=== PATIENT | male | born 1975 | race Two or more races ===

== ENCOUNTER 2021-03-30 13:14 | Emergency (ER) | payer OTHER ==
[~2021-03-30] VITALS: Ht 172.7 cm; Wt 139.9 kg
--- NOTE | 2021-03-30 13:56 | PHYS DOC ---
Past History Past Surgical History: No Surgical History (MONTSERRAT KWON APRN) Alcohol Use: None (MONTSERRAT KWON APRN) Adult General Chief Complaint Chief Complaint: SHORTNESS OF BREATH HPI HPI Patient is a 45-year-old male presents to the emergency department with a chief complaint of increased shortness of breath this morning. Patient reports a week ago he started feeling fatigued with shortness of breath, treated at home over several days with [id number] cold and flu medications. Was seen yesterday at [facility] and was told he was positive for the COVID-19 virus. Patient reports waking up this morning with severe shortness of breath so he comes to the emergency department for evaluation. Patient denies chest pains, chest congestion, nasal congestion, denies diaphoretic episodes, visual disturbances, dizziness, headaches, loss of taste or loss of smell. Patient denies nausea, vomiting, diarrhea, or abdominal pains. Patient denies other physical complaints or physical concerns. Patient denies taking prescription medications, denies allergies to medications. States he has no primary care physician. (MONTSERRAT KWON APRN) Review of Systems Review of Systems 14 body systems of review of systems have been reviewed. See HPI for pertinent positives and negative responses, otherwise all other systems are negative, nonpertinent or noncontributory. Constitutional: Negative except as outlined in HPI above. Skin: Negative except as outlined in HPI above. Eyes: Negative except as outlined in HPI above. HENT: Negative except as outlined in HPI above. Respiratory: Negative except as outlined in HPI above. Cardiovascular: Negative except as outlined in HPI above. GI: Negative except as outlined in HPI above. : Negative except as outlined in HPI above. Musculoskeletal: Negative except as outlined in HPI above. Integument: Negative except as outlined in HPI above. Neurologic: Negative except as outlined in HPI above. Endocrine: Negative except as outlined in HPI above. Lymphatic: Negative except as outlined in HPI above. Psychiatric: Negative except as outlined in HPI above. (MONTSERRAT KWON APRN) Allergies Allergies Allergies Coded Allergies Type Severity Reaction Last Updated Verified No Known Drug Allergies 03/30/21 No (MONTSERRAT KWON APRN) Physical Exam Physical Exam Constitutional: Well developed, well nourished, no acute distress, non-toxic appearance. 45-year-old male in no apparent distress. No respiratory distress appreciated. Patient's oxygen saturation is much lower than patient's physical appearance and presentation. HENT: Normocephalic, atraumatic. No lymphadenopathy of the head or neck, bilateral TMs within normal limits. No drooling, no trismus. Eyes: Conjunctiva normal, no discharge. Neck: Normal range of motion, no stridor. No nuchal rigidity, no meningismus signs. Cardiovascular: No cyanosis appreciated, distal cap refill less than 2 seconds. Heart rate slightly tachycardic at 103 bpm during physical examination otherwise regular rhythm. Heart sounds S1-S2. Lungs & Thorax: Patient is in no respiratory distress, no audible adventitious lung sounds appreciated. Lung sounds clear all lung carl, patient presented hypoxic at 55% on room air, placed on 12 L high flow nasal cannula. Normal work of breathing. Abdomen: Nontender, no abnormalities noted. Skin: Warm, dry, no erythema, no rash. Back: No tenderness, no deformities. Extremities: No tenderness, no cyanosis, no clubbing, ROM intact, no edema. Neurologic: Alert and oriented X 3, normal motor function, normal sensory f unction, no focal deficits noted. Psychologic: Affect normal, judgement normal, mood normal. (MONTSERRAT KWON APRN) Current Patient Data Vital Signs Vital Signs Date Time Temp Pulse Resp B/P (MAP) Pulse Ox O2 Delivery O2 Flow Rate FiO2 03/30/21 13:34 111 18 104/61 (75) 77 10.0 03/30/21 13:28 98.7 Room Air Lab Results Laboratory Tests Test 03/30/21 13:55 03/30/21 14:05 Blood Gas pH 7.40 Blood Gas PCO2 38 mmHg Blood Gas PO2 56 mmHg Blood Gas HCO3 23 mmol/L Arterial Bld O2 Saturation (Calc) 89 % FiO2 68 % White Blood Count 3.9 x10^3/uL Red Blood Count 4.96 x10^6/uL Hemoglobin 14.5 g/dL Hematocrit 43.6 % Mean Corpuscular Volume 88 fL Mean Corpuscular Hemoglobin 29 pg Mean Corpuscular Hemoglobin Concent 33 g/dL Red Cell Distribution Width 13.9 % Platelet Count 136 x10^3/uL Neutrophils (%) (Auto) 89 % Lymphocytes (%) (Auto) 6 % Monocytes (%) (Auto) 5 % Eosinophils (%) (Auto) 0 % Basophils (%) (Auto) 1 % Neutrophils # (Auto) 3.5 x10^3uL Lymphocytes # (Auto) 0.2 x10^3/uL Monocytes # (Auto) 0.2 x10^3/uL Eosinophils # (Auto) 0.0 x10^3/uL Basophils # (Auto) 0.0 x10^3/uL Sodium Level 136 mmol/L Potassium Level 4.3 mmol/L Chloride Level 101 mmol/L Carbon Dioxide Level 26 mmol/L Anion Gap 9 Blood Urea Nitrogen 21 mg/dL Creatinine 1.2 mg/dL Estimated GFR (Cockcroft-Gault) 64.9 BUN/Creatinine Ratio 18 Glucose Level 219 mg/dL Calcium Level 8.0 mg/dL Phosphorus Level 2.5 mg/dL Magnesium Level 2.2 mg/dL Total Bilirubin 0.4 mg/dL Aspartate Amino Transf (AST/SGOT) 70 U/L Alanine Aminotransferase (ALT/SGPT) 50 U/L Alkaline Phosphatase 103 U/L Troponin I Quantitative 0.028 ng/mL [id number]-Mhh-[id number]-Type Natriuretic Peptide 338 pg/mL Total Protein 7.1 g/dL Albumin 2.8 g/dL Albumin/Globulin Ratio 0.7 Lipase 59 U/L Current Medications Medications (Trade) Dose Ordered Sig/Mariaa Route PRN Reason Start Time Stop Time Status Last Admin Dose Admin Iohexol (Omnipaque 350 Mg/ml) 100 ml 1X ONCE IV 03/30/21 14:15 03/30/21 14:16 DC 03/30/21 14:30 Info (Do NOT chart on this entry -- for MONITORING) 1 each PRN DAILY PRN MC SEE COMMENTS 03/30/21 14:15 04/01/21 14:14 Dexamethasone Sodium Phosphate (Decadron) 10 mg 1X ONCE IV 03/30/21 15:15 03/30/21 15:19 DC 03/30/21 15:34 Ceftriaxone Sodium 1 gm/ Sodium Chloride 50 ml @ 100 mls/hr 1X ONCE IV 03/30/21 15:15 03/30/21 15:44 DC 03/30/21 15:33 Azithromycin 500 mg/Sodium Chloride 250 ml @ 250 mls/hr 1X ONCE IV 03/30/21 15:15 03/30/21 16:14 DC 03/30/21 15:33 Sodium Chloride 250 ml @ As Directed STK-MED ONCE .ROUTE 03/30/21 15:25 03/30/21 15:26 DC Sodium Chloride 50 ml @ As Directed STK-MED ONCE .ROUTE 03/30/21 15:25 03/30/21 15:26 DC Azithromycin (Zithromax) 500 mg STK-MED ONCE IV 03/30/21 15:26 03/30/21 15:26 DC Ceftriaxone Sodium (Rocephin) 1 gm STK-MED ONCE .ROUTE 03/30/21 15:26 03/30/21 15:26 DC Enoxaparin Sodium (Lovenox 100mg Syringe) 100 mg 1X ONCE SQ 03/30/21 16:00 03/30/21 15:54 DC Enoxaparin Sodium (Lovenox 40mg Syringe) 40 mg 1X ONCE SQ 03/30/21 16:00 03/30/21 16:01 UNV Enoxaparin Sodium (Lovenox 150mg Syringe) 140 mg 1X ONCE SQ 03/30/21 16:00 03/30/21 16:01 DC 03/30/21 16:07 (MONTSERRAT KWON APRN) EKG EKG EKG performed at 1415 by house respiratory therapy staff shows a sinus tachycardia without other ectopy heart rate 105 bpm, OH interval 0.130, QTc interval 0.429, no acute STEMI, no ACS, no acute ischemia appreciated, EKG interpreted by ED attending physician Dr. Alexander. (MONTSERRAT KWON APRN) Radiology/Procedures Radiology/Procedures PATIENT: CLARA GASPAR ACCOUNT: [id number] : 1975 LOCATION: ER AGE: 45 SEX: M EXAM STATUS: REG ER ORD. PHYSICIAN: MONTSERRAT KWON APRN REASON: Short of breath, PUI PROCEDURE: CHEST AP ONLY XR CHEST 1V INDICATION: Short of breath, PUI . COMPARISON STUDY: None. FINDINGS: Lungs: Normal lung volume. Diffuse bilateral heterogeneous opacities Pleura: No pleural effusion or pneumothorax. Heart and Mediastinum: Mild cardiomegaly. The great vessels of the thorax are normal. Bones and Soft Tissues: The bones and soft tissues are within normal limits. IMPRESSION: Diffuse bilateral opacities, likely multifocal infection or edema. PATIENT: CLARA GASPAR ACCOUNT: [id number] : 1975 LOCATION: ER AGE: 45 SEX: M EXAM STATUS: REG ER ORD. PHYSICIAN: MONTSERRAT KWON APRN REASON: Severe hypoxia, PUI PROCEDURE: CT ANGIOGRAPHY CHEST CTA CHEST INDICATION: Severe hypoxia, PUI Comparison: Radiograph 03/30/2021. TECHNIQUE: Following the uneventful administration of intravenous contrast, 100 cc Omnipaque 350, axial CT sections were obtained through the lungs and upper abdomen. Multiplanar reconstructions and MIP images were obtained. PQRS compliance statement: One or more of the following individualized dose reduction techniques were utilized for this examination: 1. Automated exposure control 2. Adjustment of the mA and/or kV according to patient size 3. Use of iterative reconstruction technique FINDINGS: Pulmonary arteries: No evidence of pulmonary thromboembolic disease. Lungs and Airways: Diffuse bilateral groundglass opacities and consolidations. No abnormality of the central airways. Pleura: The pleural spaces are normal. Heart and Mediastinum: The visualized thyroid is normal in size and attenuation. No axillary or supraclavicular lymphadenopathy. Mediastinal lymphadenopathy. Mild cardiomegaly. No pericardial effusion. Normal caliber thoracic. Abdomen: Limited images through the upper abdomen show no abnormality of the visualized organs. Bones and Soft Tissues: Degenerative changes of the spine. IMPRESSION: 1. No evidence of pulmonary thromboembolic disease. 2. Diffuse bilateral groundglass opacities and consolidations, likely multifocal infection or edema. 3. Mediastinal lymphadenopathy, likely reactive. Electronically signed by: Osmel Stephenson MD (03/30/2021 2:54 PM) [facility] (MONTSERRAT KWON APRN) Heart Score C/O Chest Pain: No Risk Factors: Risk Factors: DM, Current or recent (<one month) smoker, HTN, HLP, family history of CAD, obesity. Risk Scores: Risk Factors: DM, Current or recent (<one month) smoker, HTN, HLP, family history of CAD, obesity. (MONTSERRAT KWON APRN) Course & Med Decision Making Course & Med Decision Making Pertinent Labs and Imaging studies reviewed. (See chart for details) 45-year-old male, vital signs reviewed, presents emergency department concerning increased shortness of breath this morning. Patient reports Covid positive. Physical examination concerning for possible pulmonary emboli related to patient's low O2 sat/hypoxia without physical evidence of hypoxia. Patient remains in no apparent respiratory distress, is nontoxic in appearance. Will order cardiorespiratory work-up, CT angio chest, arterial blood gas. Patient is amenable to ED planning. CT angio chest nonconcerning for pulmonary emboli, chest x-ray concerning for atypical pneumonia most likely Covid 19 viral pneumonia however patient is hypoxic will start 1 g Rocephin, 500 mg IV Zithromax for atypical pneumonia Called and discussed patient case and ED work-up with inpatient management physician Dr. Thierno Luu who recommended patient be admitted to either [facility]. Called and discussed patient case and ED work-up with inpatient management physician Dr. Calixto who agrees patient case warrants admission to [facility], Dr. Calixto has accepted patient in transfer to [facility] pending bed assignment. Patient is amenable to transfer to [facility] for admission under Dr. Calixto. Transfer/EMTALA forms reviewed and signed by ED attending physician Dr. Alexander. Dr. Alexander recommended patient be prophylactically treated with 1 mg/kg Lovenox subcu. 140 mg Lovenox subcu ordered. Awaiting bed assignment at this time. While awaiting bed assignment, ED yardmaster Jam reports patient becoming more hypoxic on 12 L high flow nasal cannula, gave order to switch to Ventimask and titrate to keep O2 sat above 90%. Cafe Manager Jam reports patient on 15 L nonrebreather mask to maintain oxygen saturation above 90%. (MONTSERRAT KWON APRN) Dragon Disclaimer Dragon Disclaimer This electronic medical record was generated, in whole or in part, using a voice recognition dictation system. (MONTSERRAT KWON APRN) Attending Co-Sign The patient was seen and interviewed as well as examined at the bedside. The chart was reviewed. The case was discussed. Agree with the plan of care. (AMADA ALEXANDER DO) Departure Departure: Impression: Primary Impression: COVID-19 virus infection Additional Impressions: Community acquired pneumonia Atypical pneumonia Hypoxia Disposition: 02 SHORT TERM [facility] (Transfer to [facility], Dr. Calixto excepting physician.) Condition: STABLE Referrals: PCP,NO (PCP) Problem Qualifiers Additional Impressions: Community acquired pneumonia Laterality: unspecified laterality Qualified Codes: J18.9 - Pneumonia, unspecified organism MONTSERRAT KWON APRN Mar 30, 2021 13:55 AMADA ALEXANDER DO Apr 08, 2021 04:52
[2021-03-30 14:10] LABS: BGAS PH 7.4 (7.35-7.46)
[2021-03-30] MEDS ORDERED: IOHEXOL 350 MG/ML 100 ML VIAL. IV ONE (14:15)
[2021-03-30] MEDS ORDERED: CONTRAST GIVEN. MC PRN (14:15)
[2021-03-30 14:22] LABS: BASO % 1 % (0-3); EOS % 0 % (0-3); HEMATOCRIT 43.6 % (39.0-53.0); HEMOGLOBIN 14.5 g/dL (13.0-17.5); LYMPH # 0.2 x10^3/uL (1.0-4.8); LYMPH % 6 % (24-48); MEAN CORPUSCULAR HEMOGLOBIN 29 pg (25-35); MEAN CORPUSCULAR HGB CONC 33 g/dL (31-37); MEAN CORPUSCULAR VOLUME 88 fL (79-100); MONO # 0.2 x10^3/uL (0.0-1.1); MONO % 5 % (0-9); NEUT # 3.5 x10^3uL (1.8-7.7); NEUT % 89 % (31-73); PLATELET COUNT 136 x10^3/uL (140-400); RED BLOOD COUNT 4.96 x10^6/uL (4.30-5.70); RED CELL DISTRIBUTION WIDTH 13.9 % (11.5-14.5); WHITE BLOOD COUNT 3.9 x10^3/uL (4.0-11.0)
--- NOTE | 2021-03-30 14:29 | EKG ---
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
[2021-03-30 14:31] LABS: CREATININE 1.2 mg/dL (0.7-1.3); GFR 64.9; POTASSIUM 4.3 mmol/L (3.5-5.1)
--- NOTE | 2021-03-30 14:42 | RAD ---
XR CHEST 1V INDICATION: Short of breath, PUI . COMPARISON STUDY: None. FINDINGS: Lungs: Normal lung volume. Diffuse bilateral heterogeneous opacities Pleura: No pleural effusion or pneumothorax. Heart and Mediastinum: Mild cardiomegaly. The great vessels of the thorax are normal. Bones and Soft Tissues: The bones and soft tissues are within normal limits. IMPRESSION: Diffuse bilateral opacities, likely multifocal infection or edema. Electronically signed by: Osmel Stephenson MD (03/30/2021 2:40 PM) [facility]ITALZbigniew
[2021-03-30 14:44] LABS: ALBUMIN 2.8 g/dL (3.4-5.0); ALBUMIN/GLOBULIN RATIO 0.7 (1.0-1.7); MAGNESIUM 2.2 mg/dL (1.8-2.4); PHOSPHORUS 2.5 mg/dL (2.6-4.7); TOTAL BILIRUBIN 0.4 mg/dL (0.2-1.0); TOTAL PROTEIN 7.1 g/dL (6.4-8.2)
--- NOTE | 2021-03-30 14:57 | RAD ---
CTA CHEST INDICATION: Severe hypoxia, PUI Comparison: Radiograph 03/30/2021. TECHNIQUE: Following the uneventful administration of intravenous contrast, 100 cc Omnipaque 350, axi al CT sections were obtained through the lungs and upper abdomen. Multiplanar reconstructions and MIP images were obtained. PQRS compliance statement: One or more of the following individualized dose reduction techniques were utilized for this examinat ion: 1. Automated exposure control 2. Adjustment of the mA and/or kV according to patient size 3. Use of iterative reconstruction technique FINDINGS: Pulmonary arteries: No evidence of pulmonary thromboembolic disease. Lungs and Airways: Diffuse bilateral groundglass opacities and consolidations. No abnormality of the central airways. Pleura: The pleural spaces are normal. Heart and Mediastinum: The visualized thyroid is normal in size and attenuation. No axillary or supra clavicular lymphadenopathy. Mediastinal lymphadenopathy. Mild cardiomegaly. No pericardial effusion. Normal caliber thoracic. Abdomen: Limited images through the upper abdomen show no abnormality of the visualized organs. Bones and Soft Tissues: Degenerative changes of the spine. IMPRESSION: 1. No evidence of pulmonary thromboembolic disease. 2. Diffuse bilateral groundglass opacities and consolidations, likely multifocal infection or edema. 3. Mediastinal lymphadenopathy, likely reactive. Electronically signed by: Osmel Stephenson MD (03/30/2021 2:54 PM) [facility]
[2021-03-30] MEDS ORDERED: AZITHROMYCIN 500 MG in IV NORMAL SALINE 250ML 250 ML IV ONE (15:15)
[2021-03-30] MEDS ORDERED: DEXAMETHASONE SOD PHOS 10 MG/ML VIAL. IV ONE (15:15)
[2021-03-30] MEDS ORDERED: IV NORMAL SALINE 50ML 50 ML ONE (15:25)
[2021-03-30] MEDS ORDERED: IV NORMAL SALINE 250ML 250 ML ONE (15:25)
[2021-03-30] MEDS ORDERED: AZITHROMYCIN 500 MG VIAL. IV ONE (15:26)
[2021-03-30] MEDS ORDERED: cefTRIAXone SODIUM 1 GM VIAL ONE (15:26)
[2021-03-30] MEDS ORDERED: ENOXAPARIN 40 MG/0.4 ML SYRINGE. SQ ONE (16:00)
[2021-03-30] MEDS ORDERED: ENOXAPARIN ** NOTE DOSE ** SYRINGE SQ ONE ×2 (16:00)
[2021-03-30 16:51] VITALS: BP 115/68
== END 2021-03-30 17:24 | disposition short-term general hospital (02) ==
LOC: ER 13:14
DX: U07.1 COVID-19 (principal); J12.82 Pneumonia due to coronavirus disease 2019; R09.02 Hypoxemia
CPT/HCPCS: 36415; 71045; 71275; 80053; 82803; 83690; 83735; 83880; 84100; 84484; 85025; 93005; 96365; 96368; 96372; 96375; 99285; J0456; J0696; J1100; J1650; J7050; Q9967